=== PATIENT | male | born 1985 | race Caucasian/White ===

== ENCOUNTER 2017-06-25 18:00 | Outpatient (RCR) | payer MEDICAID, SELFPAY ==
--- NOTE | 2017-05-14 18:57 | HP.PTEVAL_ITS ---
Patient's Visit Information ABDIRIZAK ALEX is a 32 year old M referred to Physical Therapy by DO LAURA Galvan with a diagnosis of L snapping scapula. Date of Evaluation: 05/14/17 Physical Therapist: Rio Montanez PT, - Visit Plan Frequency: 2x /Week Duration: 4 Weeks Plan: scap stab ex's (serratus, rhomboids, upper trap), myofascial release to med scap, UBE, and HEP - Subjective Subjective: Pt reports he has had intermittent pain in his L scapula for approximately 1 year. Pt reports his pain occurs when he lifts his arm over his head. Pt reports the pain occurs both on the way up and on the way down at a specific point. Pt notes the pain occurs, but only lasts for a temporary moment and is then gone. Pt reports he has the same pain on the R side, but it is not nearly as severe. No T or N at this time. No sleep diff secondary to pain. 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 Pt notes he has to move his arm in a different pattern to make sure the pain doesnt occur. R hand dom. 0/10 pain at rest, 4/10 at worst - Pain L scapula Pain Intensity (Out of 10): 0 Pain Intensity Range: 4 - Objective Neuro: B UE sensation is WNL to light touch. B bicepital reflex= 1/3. Palpation : No obvious deformity. Crepitus with AROM L scap. No pain. ROM: R shoulder flex= 180, abd= 180, ER= 70, IR WNL; L shoulder flex= 160, abd= 180, ER= 70, IR = WNL. MMT: B shoulders grossly rated at 5/5 throughout. Special test: No pos findings - Goals Goal 1:: Decrease L shoulder pain x 50% to aid with IADL's Goal Time Frame: 2-4 Weeks Goal 2:: Increase scap stab strength to 5/5 to aid with decreasing pain Goal Time Frame: 2-4 Weeks Goal 3:: I with HEP Goal Time Frame: 2-4 Weeks - Rehabilitation Potential Physical Therapy Diagnosis: L scapular pain and movement irregularities secondary to scapulohumeral irregularities Rehabilitation Potential: Good - Anticipated Interventions Patient/Client Instruction: Educate patient on: Condition, Plan of Care For the Purpose of:: To improve self management Therapeutic Exercise to Include: Strength training, Endurance training, Postural training, Active ROM, Scapular Strength/Stabilization For the Purpose of:: To decrease pain, To increase ROM, To improve muscle performance and motor function Thank you for the opportunity to evaluate your patient. For Medicare and Medicare HMO plans, please review the plan of care and approve it. It will need to be FAXED BACK to us at [phone] for Medicare purposes. Please let me know if there are questions or concerns regarding this plan of care. Physician Signature: Date:
--- NOTE | 2017-06-25 18:22 | HP.PTDCSUM_ITS ---
HP - PT D/C Summary It has been my pleasure to treat ABDIRIZAK JOHNSON under orders from Mann Irwin DO, for the diagnosis of L snapping scapula for a total of 9 visit(s) . Discharge Date: Please see the following information for a summary of their discharge status. - Subjective Subjective: No pain in L shoulder this date - Pain L scapula Pain Intensity (Out of 10): 0 - Overall Improvement % Improvement: 25 - Objective Objective/Function: L shoulder ROM: flex= 180, abd= 180, ER= 90, IR WNL. L shoulder MMT: 5/5. Pain 0/10. Pt is I with HEP. Rx goals achieved - Goals Goal 1:: Decrease L shoulder pain x 50% to aid with IADL's Goal 2:: Increase scap stab strength to 5/5 to aid with decreasing pain Goal 3:: I with HEP - Plan Plan: Discharge - D/C Information If there are questions or concerns regarding this patient's physical therapy, please feel free to call me at [phone]. Thank you for the referral of this patient. Sincerely, Rio Montanez, PT,
== END 2017-06-25 19:00 | disposition home or self-care (01) ==
LOC: PT 18:00
PROVIDERS: Visit Provider Orthopaedic Surgery
DX: M89.8X1 Other specified disorders of bone, shoulder (principal)
CPT/HCPCS: 97110; 97161; 97530

== ENCOUNTER → 2018-11-10 14:57 | Outpatient (CLI) | payer MEDICAID, SELFPAY ==
[2017-03-30 10:27] VITALS: BMI 32.1
--- NOTE | 2018-11-10 14:59 | RAD_ITS ---
STUDY: X-RAY - LEFT WRIST REASON FOR EXAM: Male, 33 years old. Pain x1 month TECHNIQUE: 3 view(s) of the wrist were obtained. COMPARISON: None. FINDINGS: Normal visualized distal radius and ulna. Normal radiocarpal articulation. Normal distal radioulnar articulation. Normal carpal bones. Normal carpal articulations. Normal carpometacarpal articulation of the thumb. Normal second through fifth carpometacarpal articulations. Normal visualized metacarpal bones. The soft tissue structures are unremarkable. RAD/Wrist min 3 Views IMPRESSION: Normal x-ray examination of the wrist. Electronically Signed: Edilberto Martines MD at 15:24 EDT , Service support ,
== END ==
PROVIDERS: Referring Provider Orthopaedic Surgery; Visit Provider Orthopaedic Surgery
DX: M25.532 Pain in left wrist (principal)
CPT/HCPCS: 73110

== ENCOUNTER 2018-11-30 06:35 | Day surgery (SDC) | payer OTHER, SELFPAY ==
[2018-11-10 15:15] VITALS: BMI 32.1
[2018-11-30] VITALS (7 sets, daily range): BP systolic 110–124; BP diastolic 62–85; PULSE 66–82; RESP 16–24; TEMP 36–37.2; O2SAT 85–99; BMI 33.1
[2018-11-30] MEDS: Bupiv/Epi 0.5% Mpf 30 ML Vial (08:34)
--- NOTE | 2018-11-30 08:42 | PCM.HP.BLA ---
History and Physical Date of Admission: 11/30/18 Intake Vital Signs 11/10/18 Body Mass Index (BMI) 32.1 Intake Visit Reasons: L.WRIST Is patient in pain?: Yes Pain scale (1-10): 8 Allergies cephalexin [From Keflex] Allergy (Mild, Verified 03/30/17 10:28) shortness of breath Medications ibuprofen 200 mg tablet 200 mg PO ONCE 03/30/17 [History Confirmed 11/10/18] venlafaxine ER 37.5 mg capsule,extended release 24 hr PO #46 cap 11/10/18 [History Confirmed 11/10/18] PFSH Surgical History (Updated 03/30/17 @ 10:29 by Farrah Medina) S/P cholecystectomy (Inactive) Family History (Updated 03/30/17 @ 10:31 by Farrah Medina) Mother Uterine cancer Ovarian cancer Brother Leukemia Grandmother CAD (coronary artery disease) Diabetes Social History (Updated 11/10/18 @ 16:33 by Henrique Barth DO) alcohol intake: never HPI L.WRIST : Details: Parts of this documentation were recorded by a scribe, this documentation accurately reflects the service provided and the decisions made by me, Henrique Barth DO 11/10/18 0741. ABDIRIZAK JOHNSON is a 33 year old M, who saw Dr Irwin in 2017 for shoulder pain and is here today for left wrist pain. He saw [facility] provider a year ago that told him he had DeQuervains and gave him a steroid injection that he states last for a month. Due to insurance issue he was unable to follow up with the original provider. Denies any imaging or EMG. He states that he has burning and pain in the radial aspect of the distal forearm. Ortho Exam Left Wrist/Hand Left Wrist: Yes ROM-Pronation 0-80, Yes ROM-Supination 0-90, Yes Bety's Test and Yes TTP 1st dorsal compartment; no CMC Grind Sensation: Radial: I, Ulnar: I, Median: I WRIST: Patient has prominent radial styloids bilateral. There is no erythema he is exquisitely tender over the first dorsal compartment and has a remarkably positive Bety's test negative CMC grind intact flexor and extensor tendons there is no snapping with forearm rotation Supplemental Info 11/10/2018 x-ray left foot :no acute findings Assessment & Plan Problems 1. De Quervain's tenosynovitis, left M65.4 Plan Obtained X-rays of patient's left wrist. Personally reviewed x-rays. There is no obvious fracture, dislocation, or lucency noted. Educated on the anatomy of the wrist and explained that the treatment options for dequervains are OT, injections and oral anti inflammatories or first dorsal comp release. Reviewed the risk of surgery, including nerve damage particularly superficial radial nerve branch and risk of tendon subluxation after really. Post op restrictions are limited heavy lifting or resistance for a month. Reviewed the pre-operative plans with the patient. Risks and benefits of the procedure were fully explained, including but not limited to infection, neurovascular injury, continued pain, arthritis, stiffness, need for further surgery, re-injury, DVT, PE, general risks of anesthesia, and loss of limb or life. The patient understands all the risks and does wish to proceed with written consent. Follow up post op or sooner if pain, swelling, numbness or associated symptoms, or concerns develop. All questions answered. Patient in agreement of plan. I have re-examined the patient. There are no clinical changes since date of exam
--- NOTE | 2018-11-30 08:45 | PCM.DC.ORTHO ---
Discharge Diet: No Restrictions Call your doctor if you observe: Fever of 101 or Higher Suture Line Care: Avoid Pulling/Pushing Additional Instructions: Ice and elevate next 72 hours. Encourage finger and wrist range of motion. No lifting greater than 1 pound with operative extremity. Leave dressing on clean dry and intact for 48 hours. After 48 hours may remove and begin showering with warm water and antibacterial soap daily. Do not submerge incision until okayed by physician after her first postoperative appointment. After this may apply large Band-Aid and change daily. Do not apply any topical creams to the incision. May take [id number] Tylenol and ibuprofen for pain control. Allergies/Adverse Reactions: Allergies cephalexin [From Keflex] Allergy (Mild, Verified 11/25/18 11:15) shortness of breath hydrocodone [From Vicodin] Adverse Reaction (Verified 11/25/18 11:17) EMOTIONAL ISSUES AND AGRESSION Medications to take at Discharge ibuprofen 200 mg tablet 200 mg PO ONCE PRN 03/30/17 Venlafaxine HCl [Effexor Xr] 75 mg PO DAILY 11/25/18 Acetaminophen [Tylenol Extra Strength] 1,000 mg PO Q6H PRN PRN #50 tab 11/30/18 The following prescriptions were given: Acetaminophen [Tylenol Extra Strength] 1,000 mg PO Q6H PRN PRN #50 tab PRN Reason: Pain Transmission Status: Pending to [id number] Primary Care Physician: Luisito Hoang MD [Primary Care Provider] - Test Results: Test results from this visit will be discussed in further detail at your follow-up appointment, if applicable. Please Follow Up With: Henrique Barth DO - 2 weeks
--- NOTE | 2018-11-30 08:47 | PCM.OPRPT ---
Report of Operation Date of Procedure: 11/30/18 Description of Surgical Findings:: Preoperative diagnosis: Left de Quervain's tenosynovitis Postoperative diagnosis: Same Procedure: First dorsal compartment release Anesthesia: General EBL: None Complications: None Condition: Condition stable to PACU Indication for procedure: 33-year-old male patient who has had prolonged de Quervain's tenosynovitis who is failed injections by another physician and wished to proceed with first dorsal compartment release risk benefits and alternatives were reviewed including risk of bleeding infection nerve, artery, bone, tissue damage, blood clot need for further surgery and continued pain. Procedure: Patient was met in the preoperative holding area once again the operative extremity was identified by both patient and physician was marked patient was met by anesthesia and brought back to the operating room and will current transfer the operative table in the supine position. Anesthesia was started. A well-padded tourniquet was placed in the left upper extremity. Patient was prepped and draped in usual sterile fashion. A timeout was called to the proper patient procedure and extremity are being contemplated. An oblique incision made just proximal to the radial styloid over the first dorsal compartment was made through the skin only skin hooks were used and section was carried down with let letter scissors to avoid injury to the superficial radial nerve which was visualized and retracted out of the field. On the dorsal side of the first dorsal compartment deep blade was used to make a perforation followed by Littler scissors to extend the release proximally and distally the abductor pollicis longus and extensor pollicis brevis were in separate compartments in each compartment was identified and released there was no aberrant tendons the wound was thoroughly irrigated and the skin was closed with 4-0 Prolene vertical mattress stitches dressing was applied in the form of Xeroform 4 x 4 web roll and Flash wrap patient tolerated procedure well tourniquet was let down all counts were correct patient was brought back to the PACU in stable condition.
== END 2018-11-30 10:32 | disposition home or self-care (01) ==
LOC: SDC 06:39 → AC 06:40
PROVIDERS: Family Provider Student in an Organized Health Care Education/Training Program; PCP Student in an Organized Health Care Education/Training Program; Referring Provider Orthopaedic Surgery; Visit Provider Orthopaedic Surgery
PROC: (CPT 64721; principal; 2018-11-30 07:45)
DX: M65.4 Radial styloid tenosynovitis [de Quervain] (principal); Z88.1 Allergy status to other antibiotic agents; F32.9 Major depressive disorder, single episode, unspecified; F41.9 Anxiety disorder, unspecified
CPT/HCPCS: 25000; J7120; J2405

== ENCOUNTER 2019-01-20 15:00 | Outpatient (RCR) | payer OTHER, SELFPAY ==
[2018-12-13 14:09] VITALS: BMI 33.1
--- NOTE | 2018-12-22 15:48 | HP.OTEVAL ---
Patient's Visit Information ABDIRIZAK JOHNSON is a 33 year old M, referred to Occupational Therapy by ALLEN Kauffman, with a diagnosis of Post op L dequervians release. Date of Evaluation: 12/22/18 Occupational Therapist: Amparo Montes - Subjective Subjective: Pt seen for initial occupational therapy evaluation for post-op L DeQuervains release 11/30/18. Pt is R hand dominent. 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 Pt states independent with all tasks but limited with strength and numbness of L hand and forearm since sx. - Pain Left Hand Pain Intensity Range: 1 - Objective Objective/Observation: increased edema L thumb and forearm. - ROM Wrist: R 71/91, L 67/90 ROM Comments: able to make composite fist L and R, able to touch thumb w/ all digits bilateral hands. WFL bilateral digits. 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 Goal:: Pt will demo no pain greater than 1/10 with movement of L hand/wrist by d/c from OT services Goal:: Pt will progress w/ L hand sensation using variety of different textures and techniques to increase sensation of L thenar eminences region with monofilament of 2.83 (normal range) by d/c from OT services. Goal:: Pt will be educated on scar mngmt technqiues with good understanding and demo 100%x Goal:: Pt will be educated on L UE HEP with good understanding and demo 100%x - Rehabilitation General Assessment: Pt demo increased edema to L hand and forearm, decreased sensation of L hand thenar eminence region and forearm. Pt would benefit from direct occupational therapy services to increase strength L hand lateral pinch, increase sensation to L thenar eminence region and forearm, decrease edema and education on scar mngmt technqiues to increase pts strength and indep w/ functional living tasks w/o decreased sensation and with increased strength 1-2x/wk x 4wks Rehabilitation Potential: Excellent - Anticipated Interventions Anticipated Interventions: Strengthening, Edema Control, Scar Care, Massage, Desensitization, Sensory Retraining, Modalities, Orthoses, Joint Protection/Energy Conservation, Sensory Stimulation, Education re Diagnosis, Education re Self-Bandaging Techniques, Education re Skin Care and Precautions, Education re Self Massage Techniques, Education re Correct Donning Tech,Care&Wearing Sched Comp Garments, Home Program - Visit Plan Frequency: 1-2x /Week Duration: 4 Weeks General Plan: Pt would benefit from direct occupational therapy services to increase strength L hand lateral pinch, increase sensation to L thenar eminence region and forearm, decrease edema and education on scar mngmt technqiues to increase pts strength and indep w/ functional living tasks w/o decreased sensation and with increased strength 1-2x/wk x 4wks TEXT: Thank you for the opportunity to evaluate your patient. For Medicare and Medicare HMO plans, please review the plan of care and approve it. It will need to be FAXED BACK to us at [phone] for Medicare purposes. Please let me know if there are questions or concerns regarding this plan of care. Physician Signature: Date:
--- NOTE | 2019-01-20 15:47 | HP.OTDCSUM_ITS ---
HP - OT D/C Summary It has been my pleasure to treat ABDIRIZAK JOHNSON under orders from ALLEN Kauffman, for the diagnosis of Post op L dequervians release for a total of 7 visit(s). Please see the following information for a summary of their discharge status. - Overall Improvement % Improvement: 20 - Objective Objective/Function: increase strength L hand - Goals Patient Goals: Regain Strength, Decrease Pain, Decrease Swelling/Stiffness, Use Hand/Wrist/Arm Normally Again, Decrease Tingling/Numbness, Decrease Sensitivity, Resume Former Household Responsibilities (Cooking,Cleaning,Yard, etc.), Resume Hobbies Goal:: Pt will progress w/ L lateral pinch by 5# to increase indep to complete work with car tools independently by d/c from OT services. Goal:: Pt will demo no pain greater than 1/10 with movement of L hand/wrist by d/c from OT services Goal:: Pt will progress w/ L hand sensation using variety of different textures and techniques to increase sensation of L thenar eminences region with monofilament of 2.83 (normal range) by d/c from OT services. Goal:: Pt will be educated on scar mngmt technqiues with good understanding and demo 100%x Goal:: Pt will be educated on L UE HEP with good understanding and demo 100%x - Plan Plan: d/c OT POC - D/C Information Discharge Comments: Pt has progressed with OT goals. 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 Pt pinch strenth 9#. Pt has been educated on L UE HEP with good understanding and demo. 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 Pt no longer requires skilled OT services at this time. d/c OT POC. If there are questions or concerns regarding this patient's occupational therapy, please fell free to call me at [phone]. Thank you for the referral of this patient. Sincerely, Amparo Montes
== END 2019-01-20 16:15 | disposition home or self-care (01) ==
LOC: OT 15:00
PROVIDERS: Family Provider Student in an Organized Health Care Education/Training Program; PCP Student in an Organized Health Care Education/Training Program; Referring Provider Physician Assistant; Visit Provider Physician Assistant
DX: Z98.890 Other specified postprocedural states (principal)
CPT/HCPCS: 97110; 97165; 97166; 97530